=== PATIENT | female | born 1970 | race Caucasian/White ===

== ENCOUNTER 2017-02-04 11:31 | Day surgery (SDC) | payer MEDICAID ==
[~2017-02-04] VITALS: Ht 160 cm; Wt 129.1 kg
--- NOTE | ~2017-02-04 | OP ---
PATIENT NAME: LIDIA AGUILAR MEDICAL RECORD: [id number] :74 LOCATION:[facility] ADMISSION DATE: SURGEON: BONNY CARDOZA DO DATE OF OPERATION: 02/04/2017 PROCEDURE: EGD with biopsies. INDICATIONS FOR PROCEDURE: Epigastric abdominal pain, heartburn, nausea and vomiting. SCOPE: Olympus video gastroscope. MEDICATIONS: Propofol 200 mg IV per anesthesia. ESTIMATED BLOOD LOSS: Minimal. COMPLICATIONS: None. FINDINGS: Informed consent was given. The patient was made comfortable with the above medication. After reaching an adequate level of sedation by slow IV push, the patient was placed on her left side. The endoscope was then advanced under direct visualization through the mouth to the second portion of the duodenum. The upper, middle, and distal thirds of the esophagus appeared normal. At the GE junction, there was some mild evidence of LA class A reflux induced esophagitis. The endoscope was advanced into the stomach and retroflexed to view the cardia where a small sliding hiatal hernia was present. The fundus and body of the stomach appeared normal. In the antrum and prepyloric region, there was some erythema and granularity consistent with gastritis. There were also a few very superficial ulcerations consistent with what appeared to be NSAID-induced injury. The endoscope was advanced into the duodenum where the bulb and second portion of the duodenum appeared normal. It was withdrawn back into the stomach and random biopsies were taken to submit for histology and to rule out H. pylori. Scope was then withdrawn from the patient. The patient tolerated the procedure well and there were no complications. IMPRESSION: 1. Mild, LA class A, reflux induced esophagitis. 2. Small sliding hiatal hernia. 3. Gastritis. 4. Gastric ulcers consistent with NSAID-induced injury. PLAN AND RECOMMENDATIONS: 1. Discharge home when recovery parameters are met. 2. Continue GERD diet and reflux precautions. 3. Avoid NSAIDs as tolerated. 4. Carafate tabs 1 gram q.a.c. and h.s. times 2 weeks. 5. Protonix 40 mg daily times 8 weeks, then return to Pepcid as currently taking. 6. Gastric emptying scan regarding the epigastric pain and nausea. 7. Follow up biopsy specimen results. TRANSINT:[id number] Voice Confirmation ID: [id number] DOCUMENT ID: [id number] OPERATIVE REPORT [id number] GOYNE,LIDIA PATRICKBONNY SMITH DO CC: [id number] DICTATION DATE: 02/04/17 1537 HEMODIALYSIS TECHNICIAN: 02/05/17 [id number] [facility] 02/04/17 [id number] [place] [address]
[2017-02-04 14:26] LABS: BASOPHILS 0.6 % (0-2); EOSINOPHILS 1.6 % (0-7); HEMATOCRIT 39.4 % (36.0-48.0); HEMOGLOBIN 12.7 g/dL (12-16); IMMATURE GRANULOCYTES 0.3 % (0-5); LYMPHOCYTES 26.8 % (15-50); MCH 28.5 pg (26.0-34.0); MCHC 32.2 g/dL (31.0-37.0); MCV 88.5 fL (80.0-100.0); MEAN PLATELET VOLUME 8.8 fL (7.4-10.4); MONOCYTES 6.2 % (2-11); NEUTROPHILS 64.5 % (40-80); PLATELET COUNT 320 10x3/uL (130-400); RBC 4.45 10x6/uL (4.00-5.40); RDW 14.2 % (11.5-14.5); WBC 6.8 10x3/uL (4.8-10.8)
[2017-02-04] MEDS ORDERED: NEURONTIN 300300 MG PO (14:34)
[2017-02-04] MEDS ORDERED: TOFRANIL50 MG PO (14:35)
[2017-02-04] MEDS ORDERED: LATUDA40 MG PO (14:35)
[2017-02-04] MEDS ORDERED: LEXAPRO10 MG PO (14:35)
[2017-02-04 14:36] LABS: ANION GAP 13.2 mmol/L (8-16); CALCIUM 8.6 mg/dL (8.5-10.1); CARBON DIOXIDE 24.9 mmol/L (21.0-32.0); CREATININE - SERUM 0.9 mg/dL (0.6-1.3); POTASSIUM - SERUM 4.1 mmol/L (3.5-5.1)
[2017-02-04] MEDS ORDERED: PEPCID20 MG PO ×2 (14:36→14:37)
[2017-02-04] MEDS ORDERED: HYDROXYZINE HCL50 MG PO (14:36)
[2017-02-04] MEDS ORDERED: PRAVACHOL20 MG PO (14:37)
[2017-02-04 14:43] VITALS: BP 128/79; Ht 160 cm; Wt 129.1 kg
--- NOTE | 2017-02-04 16:51 | NUR ---
1545-PT SITTING WITH HOB ELEVATED. VSS. FAMILY AT BEDSIDE. SPOKE WITH FAMILY AND PT ABOUT PROCEDURAL FINDINGS. FULL LIQUIDS OFFERED. PASSING GAS. 1615- UP OOB TO BR, VOIDED WITHOUT DIFFICULTY. 1630- IV D/C'D, PT TOLERATED. CATHETER INTACT 1645- DISCHARGE INSTRUCTIONS COMPLETED. PT VERBALIZED UNDERSTANDING. PAPERWORK SIGNED. 1650-PT DISCHARGED VIA WHEELCHAIR WITH FAMILY.
== END 2017-02-04 16:50 | disposition home or self-care (01) ==
LOC: D.OPS 11:31
PROVIDERS: Anesthesiology
DX: K21.0 Gastro-esophageal reflux disease with esophagitis (principal); K44.9 Diaphragmatic hernia without obstruction or gangrene; K29.50 Unspecified chronic gastritis without bleeding; K25.9 Gastric ulcer, unspecified as acute or chronic, without hemorrhage or perforation; R12 Heartburn; Z01.812 Encounter for preprocedural laboratory examination